=== PATIENT | female | born 1955 | race Caucasian/White ===

== ENCOUNTER 2017-06-25 12:04 | Emergency (ER) | payer OTHER ==
[~2017-06-25] VITALS: Ht 167.6 cm; Wt 59.8 kg
[2017-06-25 12:11] VITALS: BP_DIAS 89; TEMP 36.7; Ht 167.6 cm; Wt 59.8 kg
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
[2017-06-25 13:43] VITALS: BP_SYST 100; PULSE 60; O2SAT 100
== END 2017-06-25 14:12 | disposition home or self-care (01) ==
LOC: EDBD 12:04 → C.EDA 12:10
DX: R51 Headache (principal); V43.62XA Car passenger injured in collision with other type car in traffic accident, initial encounter; Y92.410 Unspecified street and highway as the place of occurrence of the external cause